=== PATIENT | male | born 1980 | race Caucasian/White ===

== ENCOUNTER 2023-04-23 11:02 | Emergency (ER) | payer BC, OTHER ==
[2023-04-23] MEDS: Sodium Chloride 0.9% 10 ML Syringe FLUSH PRN (13:02)
[2023-04-23] MEDS: Sodium Chloride 0.9% 2.5 ML Syringe FLUSH PRN (13:02)
[2023-04-23 13:09] LABS: BASOPHILS ABSOLUTE AUTO 0.04 K/uL (0.00-0.20); BASOPHILS PERCENT AUTO 0.6 % (0.0-1.0); EOSINOPHILS ABSOLUTE AUTO 0.12 K/uL (0.00-0.45); EOSINOPHILS PERCENT AUTO 1.7 % (0.0-6.0); HEMATOCRIT 40.9 % (42.0-52.0); HEMOGLOBIN 14.8 g/dL (14.0-18.0); IMMATURE GRAN ABSOLUTE AUTO 0.03 K/uL (0.00-0.05); IMMATURE GRAN PERCENT AUTO 0.4 % (0.0-0.4); LYMPHOCYTES ABSOLUTE AUTO 1.68 K/uL (1.00-4.80); LYMPHOCYTES PERCENT AUTO 23.4 % (24.0-44.0); MEAN CORPUSCULAR HEMOGLOBIN 32.3 pg (28.0-32.0); MEAN CORPUSCULAR HGB CONC 36.2 g/dL (32.0-36.0); MEAN CORPUSCULAR VOLUME 89.3 fL (83.0-99.0); MEAN PLATELET VOLUME 9.3 fL (9.4-12.4); MONOCYTES ABSOLUTE AUTO 0.66 K/uL (0.00-0.80); MONOCYTES PERCENT AUTO 9.2 % (0.0-8.0); NEUTROPHILS ABSOLUTE AUTO 4.64 K/uL (1.80-7.70); NEUTROPHILS PERCENT AUTO 64.7 % (41.0-71.0); PLATELET COUNT,PLT 237 K/uL (150-400); RED BLOOD CELL COUNT 4.58 M/uL (4.52-5.90); WHITE BLOOD CELL COUNT,WBC 7.17 K/uL (3.9-11.3)
[2023-04-23 13:19] LABS: APPEARANCE,URINE CLEAR; BILIRUBIN,URINE NEGATIVE (NEGATIVE); COLOR,URINE YELLOW; GLUCOSE,URINE NEGATIVE (NEGATIVE); KETONES,URINE NEGATIVE (NEGATIVE); LEUKOCYTE ESTERASE,URINE NEGATIVE (NEGATIVE); NITRITE,URINE NEGATIVE (NEGATIVE); OCCULT BLOOD,URINE NEGATIVE (NEGATIVE); PROTEIN,URINE NEGATIVE (NEGATIVE); UROBILINOGEN,URINE 0.2 EU/dL (<2.0)
[2023-04-23 13:27] LABS: CALCIUM 8.5 mg/dL (8.5-10.1); CARBON DIOXIDE,CO2 24.2 mmol/L (21.0-32.0); CREATININE 1.1 mg/dL (0.8-1.3); EST CRCL DRUG DOSING (CG) 104.12 mL/min; POTASSIUM,K 3.6 mmol/L (3.5-5.1)
[2023-04-23 13:27] LABS: BACTERIA,URINE FEW (NEGATIVE); EPITHELIAL CELLS,URINE NOT SEEN (NONE-FEW); MUCUS,URINE LIGHT (NONE-MOD); RBC,URINE 0-1 (0-2/HPF); WBC,URINE 0-1 (0-5/HPF)
[2023-04-23] MEDS: Iopamidol 755 MG/ML 500 ML Multipack Bottle IVPUSH STA (13:53)
[2023-04-23] MEDS: cefTRIAXone 2 GM in Sodium Chloride 0.9% 50 ML IV ONE (15:33)
[2023-04-23] MEDS: metroNIDAZOLE/Normal Saline 500 MG in Premix Bag 1 BAG IV ONE (15:34)
== END 2023-04-23 17:12 | disposition home or self-care (01) ==
LOC: MW.ED 11:02
DX: K57.92 Diverticulitis of intestine, part unspecified, without perforation or abscess without bleeding (principal); Z79.899 Other long term (current) drug therapy
CPT/HCPCS: 36415; 74177; 80048; 81001; 85025; 96365; 96367; 99284; J0696; J1836; J3490; Q9967

== ENCOUNTER 2023-05-24 07:43 | Day surgery (SDC) | payer BC ==
[2023-05-24] MEDS: Lactated Ringers 1,000 ML IV SCH (08:19)
[2023-05-24] MEDS ORDERED: propofoL 50 ML ONE (09:07)
[2023-05-24] MEDS ORDERED: dexmedeTOMIDine HCl 200 MCG/2 ML SDV ONE (09:29)
[2023-05-24] MEDS ORDERED: Propofol 200 MG/20 ML SDV ONE (10:06)
[2023-05-24 10:50] VITALS: BP 114/70; PULSE 66
== END 2023-05-24 10:58 | disposition home or self-care (01) ==
LOC: MW.SDS 07:43
PROVIDERS: ATTEND Surgery
DX: K57.30 Diverticulosis of large intestine without perforation or abscess without bleeding (principal); F17.210 Nicotine dependence, cigarettes, uncomplicated; I10 Essential (primary) hypertension; Z87.19 Personal history of other diseases of the digestive system
CPT/HCPCS: J2704; J3490; J7120